=== PATIENT | female | born 1945 | race Caucasian/White ===

== ENCOUNTER 2018-08-16 19:40 | Emergency (ER) | payer OTHER ==
[~2018-08-16] VITALS: Ht 149.9 cm; Wt 76.2 kg
[2018-08-16] MEDS ORDERED: VENTOLIN HFA18 GM (20:41)
== END 2018-08-16 21:59 | disposition home or self-care (01) ==
LOC: ER 19:40
DX: R06.02 Shortness of breath (principal)

== ENCOUNTER 2018-11-10 20:20 | Emergency (ER) | payer OTHER ==
[~2018-11-10] VITALS: Ht 149.9 cm; Wt 76.2 kg
[~2018-11-10 20:20] MED LIST: VENTOLIN HFA18 GM
[2018-11-10] MEDS ORDERED: VITAMIN D35000 UNI1 (20:49)
[2018-11-10] MEDS ORDERED: SINGULAIR 10MG10 MG (20:49)
[2018-11-10] MEDS ORDERED: COZAAR50 MG (20:50)
[2018-11-10] MEDS ORDERED: SYNTHROID50 MCG (20:50)
[2018-11-10] MEDS ORDERED: FENOFIBRATE48 MG (20:50)
[2018-11-10] MEDS ORDERED: NEURONTIN300 MG (20:51)
[2018-11-10] MEDS ORDERED: BUDESONIDE0.5 MG/2 M (20:51)
[2018-11-10] MEDS ORDERED: ISOSORBIDE DINI30 MG (20:51)
[2018-11-10] MEDS ORDERED: ZOCOR20 MG (20:52)
[2018-11-10] MEDS ORDERED: MOBIC15 MG (20:52)
[2018-11-11] MEDS ORDERED: TESSALON PERLE100 M1 PO (01:22)
[2018-11-11] MEDS ORDERED: PROMETH-CODEIN 65 ML PO (01:22)
[2018-11-11] MEDS ORDERED: MUCINEX DM ER1 EAC1 PO (01:22)
[2018-11-11] MEDS ORDERED: MAALOX ADVANCE355 ML PO (01:22)
== END 2018-11-11 01:47 | disposition home or self-care (01) ==
LOC: ER 20:20
DX: J45.901 Unspecified asthma with (acute) exacerbation (principal); R05 Cough; J11.1 Influenza due to unidentified influenza virus with other respiratory manifestations

== ENCOUNTER 2019-02-18 12:54 | Outpatient (CLI) | payer OTHER ==
[~2019-02-18 12:54] MED LIST changes: +BUDESONIDE0.5 MG/2 M; +COZAAR50 MG; +FENOFIBRATE48 MG; +ISOSORBIDE DINI30 MG; +MAALOX ADVANCE355 ML PO; +MOBIC15 MG; +MUCINEX DM ER1 EAC1 PO; +NEURONTIN300 MG; +PROMETH-CODEIN 65 ML PO; +SINGULAIR 10MG10 MG; +SYNTHROID50 MCG; +TESSALON PERLE100 M1 PO; +VITAMIN D35000 UNI1; +ZOCOR20 MG
== END 2019-02-18 15:26 | disposition home or self-care (01) ==
LOC: LAB 12:54
DX: A49.2 Hemophilus influenzae infection, unspecified site (principal)

== ENCOUNTER 2020-10-17 08:10 | Emergency (ER) | payer OTHER ==
[~2020-10-17] VITALS: Ht 152.4 cm; Wt 77.1 kg
[2020-10-17] MEDS ORDERED: CHILDREN'S ASPI81 MG (08:54)
== END 2020-10-17 13:48 | disposition home or self-care (01) ==
LOC: ER 08:10 → CPU-OBS 08:43 → ER 08:43
DX: I48.20 Chronic atrial fibrillation, unspecified (principal); R07.89 Other chest pain; Z03.818 Encounter for observation for suspected exposure to other biological agents ruled out

== ENCOUNTER 2020-10-26 07:14 | Outpatient (CLI) | payer OTHER ==
[~2020-10-26 07:14] MED LIST changes: +CHILDREN'S ASPI81 MG
== END 2020-10-26 07:15 | disposition home or self-care (01) ==
LOC: NUCLEAR 07:14
PROVIDERS: ATTEND Internal Medicine
DX: R00.2 Palpitations (principal); I49.9 Cardiac arrhythmia, unspecified

== ENCOUNTER 2022-01-16 07:10 | Outpatient (CLI) | payer OTHER | END 2022-01-16 07:11 | disposition home or self-care (01) | LOC: NUCLEAR 07:10 | PROVIDERS: ATTEND Internal Medicine | DX: I20.8 Other forms of angina pectoris (principal); I87.2 Venous insufficiency (chronic) (peripheral) | CPT/HCPCS: 78452; 93017; 93970; A9500 ==

== ENCOUNTER 2023-01-04 15:26 | Emergency (ER) | payer OTHER ==
[~2023-01-04] VITALS: Ht 149.9 cm; Wt 74.8 kg
== END 2023-01-04 20:45 | disposition home or self-care (01) ==
LOC: ER 15:26
DX: I20.9 Angina pectoris, unspecified (principal); I10 Essential (primary) hypertension; J45.909 Unspecified asthma, uncomplicated; E20.9 Hypoparathyroidism, unspecified

== ENCOUNTER 2024-07-21 20:10 | Emergency (ER) | payer OTHER ==
[~2024-07-21] VITALS: Ht 149.9 cm; Wt 70.3 kg
[2024-07-21] MEDS ORDERED: LEVALBUTEROL HCL 0.63 MG/3 ML SOLUTION IH SCH (20:45)
[2024-07-21] MEDS ORDERED: PIPERACILLIN/TAZOBACTAM SODIUM 3.375 GM VIAL IV ONE (20:45)
[2024-07-21] MEDS ORDERED: 0.9 % SODIUM CHLORIDE 1,000 ML IV SCH (20:45)
[2024-07-21] MEDS ORDERED: IPRATROPIUM BROMIDE 0.5 MG/2.5 ML AMPUL.NEB IH ONE (20:45)
[2024-07-21] MEDS ORDERED: FAMOtidine 10 MG/ML (4ML VIAL) IV ONE (20:45)
[2024-07-21] MEDS ORDERED: METHYLPREDNISOLONE SOD SUCC 40 MG VIAL IV ONE (20:45)
[2024-07-21 21:56] LABS: ABG PH 7.471 (7.35-7.45); ABG PO2 89.4 mmHg (80-100); ABG pCO2 37.6 mmHg (35-45); BASE EXCESS 3.2 mmol/l; BICARBONATE 26.8 mmol/l (23-25); SaO2 97.5 %; allen test SATISFACTORY; puncture site RADIAL RIGHT
[2024-07-21 21:57] LABS: o2 21 %
[2024-07-21 22:19] LABS: PH,URINE 6.5 (5.0-8.0); URINE APPEARANCE Clear; URINE BILIRRUBIN Negative (NEGATIVE); URINE BLOOD Negative; URINE COLOR Yellow; URINE GLUCOSE Negative (NEGATIVE); URINE KETONE Negative (NEGATIVE); URINE LEUKOCYTE Negative; URINE NITRATE Negative; URINE PROTEIN Negative (NEGATIVE); URINE UROBILINOGEN 0.2 E.U./dl
[2024-07-21 22:23] LABS: URINE BACTERIA 74.6 uL (0.0-1933); URINE EPITHELIAL CELLS 2.2 uL (0.0-38.8); URINE RBC 6.4 uL (0.0-20.8); URINE WBC 3.1 uL (0.0-23.2)
[2024-07-21 23:39] LABS: HEMATOCRIT 38.2 % (36.0-45.00); HEMOGLOBIN 12.5 g/dL (12.0-15.00); INR 1.01; MEAN CELL VOLUME 91.2 fL (80.00-100.00); MEAN CORPUSCULAR HEMOGLOBIN 29.9 pg (27.00-32.0); MEAN CORPUSCULAR HGB CONC 32.7 g/dl (32.0-36.0); PLATELET COUNT 232 K/uL (150-450); RED BLOOD COUNT 4.19 M/uL (4.00-6.00); RED CELL DISTRIBUTION WIDTH 14.2 % (11.5-14.5)
[2024-07-21 23:44] LABS: ALBUMIN 3.6 gm/dL (3.4-5.0); BILIRUBIN TOTAL 0.34 mg/dL (0.3-1.2); CALCIUM 9.5 mg/dL (8.5-10.1); CREATININE SERUM 0.92 mg/dL (0.55-1.02); GFR 58.73; POTASSIUM 3.96 mEq/L (3.5-5.1); TOTAL PROTEIN 7.6 gm/dL (6.4-8.2)
[2024-07-21 23:54] LABS: C-REACTIVE PROTEIN 8.14 MG/DL (0.00-0.29)
[2024-07-22 00:01] LABS: ERYTHROCYTE SEDIMENTATION RATE 61 mm/hr
[2024-07-22 00:20] LABS: D DIMER 0.53 MG/L; PARTIAL THROMBOPLASTIN TIME 27.3 SECONDS (22.0-34.0)
[2024-07-22] MEDS ORDERED: PIPERACILLIN/TAZOBACTAM SODIUM 3.375 GM in 0.9 % SODIUM CHLORIDE 100 ML IV SCH (00:25)
[2024-07-22] MEDS ORDERED: LEVALBUTEROL HCL 0.63 MG/3 ML SOLUTION IH SCH (01:00)
[2024-07-22] MEDS ORDERED: GUAIFENESIN/DEXTROMETHORPHAN 10ML BLIST.PACK PO ONE (01:15)
[2024-07-22] MEDS ORDERED: levoFLOXacin IN DEXTROSE 5 % 150 ML IV SCH (09:00)
[2024-07-22] MEDS ORDERED: LEVOFLOXACIN750 MG PO (11:43)
[2024-07-22] MEDS ORDERED: LEVALBUTER0.31 MG/3 IH (11:47)
[2024-07-22] MEDS ORDERED: MEDROLPACK PO (11:47)
[2024-07-22] MEDS ORDERED: INTESTINEX680 M1 PO (11:48)
[2024-07-22] MEDS ORDERED: BENZONATATE100 MG PO (11:51)
== END 2024-07-22 12:42 | disposition home or self-care (01) ==
LOC: ER 20:10
PROVIDERS: General Practice
DX: J45.909 Unspecified asthma, uncomplicated (principal); J18.9 Pneumonia, unspecified organism; R06.02 Shortness of breath; Z20.822 Contact with and (suspected) exposure to COVID-19
CPT/HCPCS: 36415; 71045; 71250; 82803; 93005; 94640; 96365; 96366; 99284; J1956; J2543; J3490 ×2; J7030